=== PATIENT | male | born 1990 | race Caucasian/White ===

== ENCOUNTER 2017-02-25 11:56 | Observation (INO) | payer OTHER ==
[2017-02-25] MEDS ORDERED: Albuterol-Ipratrop 3 mg / 0.5 (3 ml) UD IH PRN (16:10)
[2017-02-25] MEDS ORDERED: Pantoprazole 40 mg EC Tab PO SCH (16:10)
[2017-02-25] MEDS ORDERED: levoFLOXacin 500 MG TAB PO SCH (16:10)
[2017-02-25] MEDS ORDERED: Albuterol-Ipratrop 3 mg / 0.5 (3 ml) UD ONE (20:27)
[2017-02-25] MEDS: Albuterol-Ipratrop 3 mg / 0.5 (3 ml) UD IH SCH ×2 (21:32→23:17)
[2017-02-25 21:42] VITALS: RESP 20
[2017-02-25] MEDS ORDERED: Pneumococcal 23-Valent Vaccine IM ONE (22:37)
[2017-02-25 22:38] VITALS: BMI 26.1
[2017-02-26] MEDS: MethylPREDNISolone 40 mg Vial IVP SCH ×2 (00:34→09:33)
[2017-02-26] MEDS: Albuterol-Ipratrop 3 mg / 0.5 (3 ml) UD IH SCH ×3 (04:09→11:16)
[2017-02-26 08:31] LABS: ADD MANUAL DIFF? NO
[2017-02-26 08:49] LABS: GRAN % 88.9 % (50.0-68.0); HEMATOCRIT 41.7 % (42.0-52.0); LYMPH # 0.5 (1.2-3.4); LYMPH % 7.1 % (22.0-35.0); MEAN CELL VOLUME 81.1 fL (80.0-105.0); MEAN CORPUSCULAR HEMOGLOBIN 27.2 pg (25.0-35.0); MEAN CORPUSCULAR HGB CONC 33.6 g/dl (31.0-37.0); MEAN PLATELET VOLUME 10.3 fl (7.0-11.0); MONO # 0.3 (0.1-0.6); PLATELET COUNT 227 10^3/uL (120.0-450.0); RED CELL DISTRIBUTION WIDTH 13.7 % (11.5-14.5); WHITE BLOOD COUNT 7.2 10^3/ul (4.5-11.0)
[2017-02-26 08:56] LABS: ALB/GLOB RATIO 1.3 (1.1-1.8); ALKALINE PHOSPHATASE 78 U/L (38-133); ALT/SGPT 38 U/L (7-56); AST/SGOT 27 U/L (15-59); BILIRUBIN,TOTAL 0.6 mg/dL (0.2-1.3); BLOOD UREA NITROGEN 15 mg/dL (7-21); CALCIUM 9.4 mg/dL (8.4-10.5); CARBON DIOXIDE 24 mmol/L (21-33); CHLORIDE 104 mmol/L (98-107); GFR AFRICAN-AMERICAN > 60; GLUCOSE,RANDOM 143 mg/dL (70-110); POTASSIUM 4.1 mmol/L (3.6-5.0); SODIUM 138 mmol/L (132-148); TOTAL PROTEIN 7.7 g/dL (5.8-8.3)
[2017-02-26 10:07] VITALS: BP 112/61; PULSE 63; TEMP 97.7; O2SAT 93
--- NOTE | 2017-02-26 12:12 | CP.PCM.DIS ---
<Nehal Josue - Last Filed: 02/26/17 13:47> Provider - Provider Date of Admission: 02/25/17 15:20 Attending physician: Tony Arrieta MD Primary care physician: none Consults: none Time Spent in preparation of Discharge (in minutes): 35 Hospital Course - Lab Results Lab Results: Most Recent Lab Values WBC 7.2 10^3/ul (4.5-11.0) 02/26/17 08:20 RBC 5.14 10^6/uL (3.5-6.1) 02/26/17 08:20 Hgb 14.0 gm/dL (14.0-18.0) 02/26/17 08:20 Hct 41.7 % (42.0-52.0) L 02/26/17 08:20 MCV 81.1 fL (80.0-105.0) 02/26/17 08:20 MCH 27.2 pg (25.0-35.0) 02/26/17 08:20 MCHC 33.6 g/dl (31.0-37.0) 02/26/17 08:20 RDW 13.7 % (11.5-14.5) 02/26/17 08:20 Plt Count 227 10^3/uL (120.0-450.0) 02/26/17 08:20 MPV 10.3 fl (7.0-11.0) 02/26/17 08:20 Gran % 88.9 % (50.0-68.0) H 02/26/17 08:20 Lymph % (Auto) 7.1 % (22.0-35.0) L 02/26/17 08:20 Pershing % (Auto) 4.0 % (1.0-6.0) 02/26/17 08:20 Eos % (Auto) 0.0 % (1.5-5.0) L 02/26/17 08:20 Baso % (Auto) 0.0 % (0.0-3.0) 02/26/17 08:20 Gran # 6.40 (1.4-6.5) 02/26/17 08:20 Lymph # 0.5 (1.2-3.4) L 02/26/17 08:20 Pershing # 0.3 (0.1-0.6) 02/26/17 08:20 Eos # 0.0 (0.0-0.7) 02/26/17 08:20 Baso # 0.00 K/mm3 (0.0-2.0) 02/26/17 08:20 Sodium 138 mmol/L (132-148) 02/26/17 08:20 Potassium 4.1 mmol/L (3.6-5.0) 02/26/17 08:20 Chloride 104 mmol/L (98-107) 02/26/17 08:20 Carbon Dioxide 24 mmol/L (21-33) 02/26/17 08:20 Anion Gap 14 (10-20) 02/26/17 08:20 BUN 15 mg/dL (7-21) 02/26/17 08:20 Creatinine 0.9 mg/dL (0.5-1.4) 02/26/17 08:20 Est GFR ( Amer) > 60 02/26/17 08:20 Est GFR (Non-Af Amer) > 60 02/26/17 08:20 Random Glucose 143 mg/dL (70-110) H 02/26/17 08:20 Calcium 9.4 mg/dL (8.4-10.5) 02/26/17 08:20 Total Bilirubin 0.6 mg/dL (0.2-1.3) 02/26/17 08:20 AST 27 U/L (15-59) 02/26/17 08:20 ALT 38 U/L (7-56) 02/26/17 08:20 Alkaline Phosphatase 78 U/L (38-133) 02/26/17 08:20 Total Protein 7.7 g/dL (5.8-8.3) 02/26/17 08:20 Albumin 4.3 g/dL (3.0-4.8) 02/26/17 08:20 Globulin 3.4 gm/dL 02/26/17 08:20 Albumin/Globulin Ratio 1.3 (1.1-1.8) 02/26/17 08:20 Grp A Beta Strep Ag Negative (NEGATIVE) 02/26/17 08:26 - Hospital Course Hospital Course: 26 yo M with PMHx of asthma, presented the day prior with one day of SOB, which worsened with exertion. Pt also had cough with white yellow phelgm and reported sore throat. Strept swab taken in ED, and duonebs and IV solumedrol administered in ED. Transferred to telemetry for observation for asthma exacerbation. On floor, treated with duonebs, IV solumedrol and levofloxacin. Said strept swab came back with negative results. D/C in good condition with the following instructions: You are discharged. Please continue your home medications of albuterol HFA inhaler with the addition of levaquin 500 mg once by mouth daily for four days, medrol dose pack with 21 4mg tabs, with the following taper: first day with 40 mg by mouth, the second day with 20 mg by mouth, third day with 12 mg by mouth, fourth day with 8 mg by mouth and fifth day with 4 mg by mouth. Please see your primary care of choice within one to two weeks. Please return to emergency department for worsening of symptoms. Discharge Exam - Head Exam Head Exam: ATRAUMATIC, NORMOCEPHALIC - Eye Exam Eye Exam: EOMI, Normal appearance Pupil Exam: NORMAL ACCOMODATION, PERRL - ENT Exam ENT Exam: Mucous Membranes Moist, Normal Exam - Respiratory Exam Respiratory Exam: Wheezes, NORMAL BREATHING PATTERN Additional comments: slight wheezing all lung cobos - Cardiovascular Exam Cardiovascular Exam: +S1, +S2. absent: Tachycardia - GI/Abdominal Exam GI & Abdominal Exam: Soft. absent: Tenderness - Exam External exam: absent: Ecchymosis, Erythema - Back Exam Back exam: absent: CVA tenderness (L), CVA tenderness (R) - Neurological Exam Neurological exam: Alert, Oriented x3 - Psychiatric Exam Psychiatric exam: Normal Affect, Normal Mood - Skin Skin Exam: Intact, Normal Color Discharge Plan - Discharge Medications Prescriptions: Albuterol HFA [Ventolin HFA 90 mcg/actuation (8 g)] 2 puff IH [id number] #1 inhaler Levofloxacin [Levaquin] 500 mg PO DAILY #4 tablet Methylprednisolone [Medrol Dose Pack (21 tabs)] See Taper PO DAILY #21 mg - Follow Up Plan Condition: GOOD Disposition: HOME/ ROUTINE Instructions: Asthma (DC), Asthma (GEN) Additional Instructions: You are discharged. Please continue your home medications of albuterol HFA inhaler with the addition of levaquin 500 mg once by mouth daily for four days, medrol dose pack with 21 4mg tabs, with the following taper: first day with 40 mg by mouth, the second day with 20 mg by mouth, third day with 12 mg by mouth, fourth day with 8 mg by mouth and fifth day with 4 mg by mouth. Please see your primary care of choice within one to two weeks. Please return to emergency department for worsening of symptoms. <Meenakshi JAMES,Tony - Last Filed: 02/26/17 16:04> Provider - Provider Date of Admission: 02/25/17 15:20 Attending physician: Tony Arrieta MD Hospital Course - Lab Results Lab Results: Most Recent Lab Values WBC 7.2 10^3/ul (4.5-11.0) D 02/26/17 08:20 RBC 5.14 10^6/uL (3.5-6.1) 02/26/17 08:20 Hgb 14.0 gm/dL (14.0-18.0) 02/26/17 08:20 Hct 41.7 % (42.0-52.0) L 02/26/17 08:20 MCV 81.1 fL (80.0-105.0) 02/26/17 08:20 MCH 27.2 pg (25.0-35.0) 02/26/17 08:20 MCHC 33.6 g/dl (31.0-37.0) 02/26/17 08:20 RDW 13.7 % (11.5-14.5) 02/26/17 08:20 Plt Count 227 10^3/uL (120.0-450.0) 02/26/17 08:20 MPV 10.3 fl (7.0-11.0) 02/26/17 08:20 Gran % 88.9 % (50.0-68.0) H 02/26/17 08:20 Lymph % (Auto) 7.1 % (22.0-35.0) L 02/26/17 08:20 Pershing % (Auto) 4.0 % (1.0-6.0) 02/26/17 08:20 Eos % (Auto) 0.0 % (1.5-5.0) L 02/26/17 08:20 Baso % (Auto) 0.0 % (0.0-3.0) 02/26/17 08:20 Gran # 6.40 (1.4-6.5) 02/26/17 08:20 Lymph # 0.5 (1.2-3.4) L 02/26/17 08:20 Pershing # 0.3 (0.1-0.6) 02/26/17 08:20 Eos # 0.0 (0.0-0.7) 02/26/17 08:20 Baso # 0.00 K/mm3 (0.0-2.0) 02/26/17 08:20 Sodium 138 mmol/L (132-148) 02/26/17 08:20 Potassium 4.1 mmol/L (3.6-5.0) 02/26/17 08:20 Chloride 104 mmol/L (98-107) 02/26/17 08:20 Carbon Dioxide 24 mmol/L (21-33) 02/26/17 08:20 Anion Gap 14 (10-20) 02/26/17 08:20 BUN 15 mg/dL (7-21) 02/26/17 08:20 Creatinine 0.9 mg/dL (0.5-1.4) 02/26/17 08:20 Est GFR ( Amer) > 60 02/26/17 08:20 Est GFR (Non-Af Amer) > 60 02/26/17 08:20 Random Glucose 143 mg/dL (70-110) H 02/26/17 08:20 Calcium 9.4 mg/dL (8.4-10.5) 02/26/17 08:20 Total Bilirubin 0.6 mg/dL (0.2-1.3) 02/26/17 08:20 AST 27 U/L (15-59) 02/26/17 08:20 ALT 38 U/L (7-56) 02/26/17 08:20 Alkaline Phosphatase 78 U/L (38-133) 02/26/17 08:20 Total Protein 7.7 g/dL (5.8-8.3) 02/26/17 08:20 Albumin 4.3 g/dL (3.0-4.8) 02/26/17 08:20 Globulin 3.4 gm/dL 02/26/17 08:20 Albumin/Globulin Ratio 1.3 (1.1-1.8) 02/26/17 08:20 Grp A Beta Strep Ag Negative (NEGATIVE) 02/26/17 08:26 Attending/Attestation - Attestation I have personally seen and examined this patient.: Yes I have fully participated in the care of the patient.: Yes I have reviewed all pertinent clinical information, including history, physical exam and plan: Yes Notes (Text): 02/26/17 15:51 Patient was seen and examined with medical laboratory assistant .Agreed with resident assessment and plan. 26 yo M with PMHx of asthma was admitted with acute exacerbation, treated with Nebulization and IV Methylprednisolon, Patient cough and dyspnea has improved.He is on room air and he is ambulatory.He has low grade fever yesterday , chest X ray is negative for acute bronchitis, patient is feeling close to base line.Patient will be discharged home and will follow up with PCP. Management plan was discussed in detail with patient Education was provided.
[2017-02-26 12:21] LABS: HEMATOCRIT 41.8 % (42.0-52.0); MEAN CELL VOLUME 81.2 fL (80.0-105.0); MEAN CORPUSCULAR HEMOGLOBIN 27.8 pg (25.0-35.0); MEAN CORPUSCULAR HGB CONC 34.2 g/dl (31.0-37.0); RED CELL DISTRIBUTION WIDTH 13.4 % (11.5-14.5); WHITE BLOOD COUNT 9.8 10^3/ul (4.5-11.0)
[2017-02-26 13:29] LABS: ALB/GLOB RATIO 1.3 (1.1-1.8); ALKALINE PHOSPHATASE 85 U/L (38-133); ALT/SGPT 41 U/L (7-56); AST/SGOT 39 U/L (15-59); BLOOD UREA NITROGEN 13 mg/dL (7-21); CARBON DIOXIDE 28 mmol/L (21-33); CHLORIDE 100 mmol/L (95-110); GFR AFRICAN-AMERICAN > 60; GLUCOSE,RANDOM 124 mg/dL (70-110); POTASSIUM 4.1 mmol/L (3.6-5.0); SODIUM 139 mmol/L (132-148); TOTAL PROTEIN 7.7 g/dL (5.8-8.3)
--- NOTE | 2017-02-26 13:51 | RAD ---
HISTORY: COMPARISON: No prior. FINDINGS: LUNGS: No active pulmonary disease. PLEURA: No significant pleural effusion identified, no pneumothorax apparent. CARDIOVASCULAR: Normal. OSSEOUS STRUCTURES: No significant abnormalities. VISUALIZED UPPER ABDOMEN: Normal. OTHER FINDINGS: None. IMPRESSION: No active disease.
--- NOTE | 2017-02-26 23:04 | CARD ---
APPROVED REPORT EKG Measurement Heart [id number] <Conclusion> Sinus tachycardia Rightward axis Borderline ECG
== END 2017-02-26 14:43 | disposition home or self-care (01) ==
LOC: ED 11:56 → ERH 15:20 → 3RNO 20:00
PROVIDERS: ADMIT Internal Medicine; ATTEND Internal Medicine
DX: J45.901 Unspecified asthma with (acute) exacerbation (principal)
CPT/HCPCS: 36415; 71010; 80053; 85025; 85027; 87040; 87070; 87430; 93005; 94640; 99281; G0378; J2920